=== PATIENT | male | born 1975 | race Caucasian/White ===

== ENCOUNTER 2017-09-12 23:34 | Emergency (ER) | payer SELFPAY ==
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
[2017-09-13 02:42] VITALS: BP 110/77
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
== END 2017-09-13 02:40 | disposition home or self-care (01) ==
LOC: ED 23:34
DX: S43.101A Unspecified dislocation of right acromioclavicular joint, initial encounter (principal); M25.511 Pain in right shoulder; V86.56XA Driver of dirt bike or motor/cross bike injured in nontraffic accident, initial encounter; Y92.9 Unspecified place or not applicable; F17.210 Nicotine dependence, cigarettes, uncomplicated
CPT/HCPCS: 99282